=== PATIENT | female | born 1955 | race Caucasian/White ===

== ENCOUNTER 2020-12-05 18:14 | Observation (INO) | payer MEDICAID, SELFPAY ==
--- NOTE | ~2020-12-05 | CT_ITS ---
EXAMINATION: CT HEAD WITHOUT CONTRAST CLINICAL INFORMATION: Altered mental status COMPARISON: None TECHNIQUE: Contiguous axial imaging was performed from the skull base to vertex without intravenous administration of contrast. This CT examination was performed using dose optimization techniques as appropriate, variously including the following: *Automated exposure control *Adjustment of mA and/or kV according to patient size (this includes techniques or standardized protocols for targeted exams where dose is matched to indication/reason for exam; i.e. extremities or head) *Use of iterative reconstruction technique DLP: 699 mGy-cm FINDINGS: There is no evidence of acute intracranial hemorrhage or territorial infarction. No abnormal mass effect or midline shift is seen. Wells to white matter differentiation is well preserved. No extra-axial fluid collections are identified. The ventricles are normal in size. There is no abnormal attenuation within the brain parenchyma. There appears to be mild nonspecific heterogeneity of the calvarial marrow cavity, nonspecific. No bony fracture. Mucosal thickening of the left maxillary sinus. Other visualized paranasal sinuses and mastoid air cells are well aerated. CT/CT head/brain wo con IMPRESSION: 1. No acute intracranial pathology. 2. Mild nonspecific heterogeneity of the calvarial marrow cavity. This is a nonspecific finding but may be seen with underlying metabolic disorders. Clinical correlation recommended. 3. Minimal sinus disease.
--- NOTE | ~2020-12-05 | XR_ITS ---
EXAMINATION: XR CHEST CLINICAL INFORMATION: Shortness of breath COMPARISON: None TECHNIQUE: Frontal view of the chest was obtained. FINDINGS: Cardiac silhouette is normal in size. The lungs are well aerated. There is no lobar consolidation. No pleural effusion or pneumothorax. No gross osseous abnormality. XR/XR chest 1V IMPRESSION: No acute pulmonary pathology.
[2020-12-05 19:56] VITALS: BP 145/92; PULSE 70; RESP 18; TEMP 36.6; O2SAT 98
[2020-12-05 20:17] LABS: MANUAL DIFF FLAG NO
[2020-12-05 20:26] LABS: Basophils Percent Auto 0.5 % (0-2); Eosinophils Absolute Auto 0.2 X10*3/uL (0.0-0.4); Eosinophils Percent Auto 1.9 % (0-4); Hematocrit 37.9 % (37-47); Hemoglobin 12.2 g/dl (12.0-16.0); Imm Gran Abs Auto 0.02 X10*3/uL (0.00-0.03); Imm Gran Pct Auto 0.2 % (0.0-0.4); Lymphocytes Absolute Auto 2.4 X10*3/uL (1.2-4.9); Lymphocytes Percent Auto 27.3 % (20-40); Mean Corpuscular HGB Conc 32.2 g/dl (31.0-35.0); Mean Corpuscular Hemoglobin 27.4 pg (27.0-33.0); Mean Platelet Volume 9.7 fL (9.4-12.3); Monocytes Absolute Auto 0.9 X10*3/uL (0.1-1.2); Monocytes Percent Auto 10.2 % (2-11); Neutrophils Absolute Auto 5.3 X10*3/uL (2.0-8.3); Neutrophils Percent Auto 59.9 % (45-73); Platelet Count 266 X10*3/uL (160-400); Red Blood Count 4.46 X10*6/uL (4.20-5.50); Red Cell Distribution Width 15.1 % (11.0-16.0); White Blood Count 8.9 X10*3/uL (4.8-10.8)
[2020-12-05 20:36] LABS: Prothrombin Time 12.2 SEC (10.8-13.0)
[2020-12-05 20:45] LABS: Anion Gap 13 (12-20); Blood Urea Nitrogen 6 mg/dL (9-16); Calcium 9.6 mg/dL (8.4-10.2); Carbon Dioxide 28 mmol/L (22-29); Chloride 95 mmol/L (96-108); Creatinine Clr Calc Pharmacy 4.4; Estimated Glomerular Filt Rate > 60; Glucose Random 87 mg/dL (60-115); Potassium 3.2 mmol/L (3.3-5.1); Sodium 133 mmol/L (135-145)
[2020-12-05 21:28] VITALS: BP 133/69; PULSE 74; RESP 19; TEMP 36.5; O2SAT 90
--- NOTE | 2020-12-05 22:30 | ECG_ITS ---
Test Reason : DIZZINESS Blood Pressure : / mmHG Vent. Rate : 072 BPM Atrial Rate : 072 BPM P-R Int : 124 ms QRS Dur : 086 ms QT Int : 396 ms P-R-T Axes : 039 076 050 degrees QTc Int : 433 ms Normal sinus rhythm Normal ECG No previous ECGs available Referred By: Miriam Flores Electronically Signed By:HERNAN MOCTEZUMA MD
--- NOTE | 2020-12-05 22:37 | ED_ITS ---
HPI - Dizziness General Chief Complaint: Dizziness Stated Complaint: dizziness Time Seen by Provider: 12/05/20 22:28 History of Present Illness HPI Narrative: Patient is a 65-year-old female with a long history of smoking. Patient complaining of change in gait over last 10 days becoming very unsteady. No fever no chills no coughing or congestion. No focal weakness. Positive coughing positive generalized malaise. Patient claims that she has been losing some weight as well. She had both for coronavirus vaccines over 2 weeks ago. Patient denies any diaphoresis. She is from home. She has no chest pain. No bloody stool. Related Data Home Medications Medication Instructions Recorded Confirmed No Known Home Meds 12/06/20 12/06/20 Allergies Allergy/AdvReac Type Severity Reaction Status Date / Time No Known Allergies Allergy Verified 12/05/20 22:28 Review of Systems Review of Systems: Constitutional: No Weight loss, No Fever, No Chills, No Night Sweats, No Fatigue, No Malaise ENT/Mouth: No Hearing loss, No Ear Pain, No Nasal Congestion, No Sinus Pain, No Hoarseness, No sore throat, No Rhinorrhea, No Swallowing Difficulty Eyes: No Eye Pain, No Swelling, No Redness, No Foreign Body, No Discharge, No Vision Changes Cardiovascular: No Chest Pain, No SOB, No Dyspnea on Exertion, No Orthopnea, No Edema, No Palpitations Respiratory: No Cough, No Sputum, No Wheezing, No Smoke Exposure, No Dyspnea Gastrointestinal: No Nausea, No Vomiting, No Diarrhea, No Constipation, No abdominal Pain, No Hematochezia, No Melena Genitourinary: no irregular bleeding, No Dysuria, No Urinary Frequency, No Hematuria, No Urinary Incontinence, No Urgency, No Flank Pain, No Urinary Flow Changes, No Hesitancy Musculoskeletal: No joint pain, No Myalgias, No Joint Swelling Skin: No Skin Lesions, No rash Neuro: No Weakness, No Numbness, No Paresthesias, No Loss of Consciousness, positive Dizziness, No Headache Psych: No Anxiety/Panic, No Depression, No SI/HI/AH/VH, No Social Issues, Heme/Lymph: No Bruising, No Bleeding,No Lymphadenopathy Endocrine: No Polyuria, No Polydipsia, No Temperature Intolerance PMFSH Past Medical History Attestation statement: The following information was validated with the patient. Medical History Hypertension Osteoporosis Psoriasis Psoriatic arthritis Social History Social History Advance Directives: No Advance Directives Information Provided: Yes Patient : No Physical Exam Vital Signs: Vital Signs: Last Vital Signs Temp 98.1 F 12/05/20 23:02 Pulse 78 12/05/20 23:02 Resp 21 H 12/05/20 23:02 BP 103/57 L 12/05/20 23:02 Pulse Ox 94 12/05/20 23:02 Body Mass Index 1.4 Appearance: Alert. Oriented X3. No acute distress. Eyes: Pupils equal, round and reactive to light. ENT: Pharynx normal. Neck: Normal inspection. Neck supple. No lymph nodes noted. No crepitus CVS: Normal heart rate and rhythm. Pulses normal. Normal S1 and S2 Respiratory: No respiratory distress. Breath sounds normal. No Wheezing. No rales Abdomen: Soft and nontender. No rigidity. No distention. good BS x4 Skin: Skin warm and dry. Positive psoriasis noted bilateral lower extremity Extremities: No lower extremity edema. Neurovascular intact to all extremities. No Lacerations. No Rash Neuro: Oriented X 3. No motor deficit. No sensory deficit. Moving all extermities. No slurred speech MDM - Dizziness MDM Narrative Medical decision making narrative: Patient's CT scan of the head was grossly negative for any acute evidence of bleeding. No mass. Patient's EKG showed a sinus pattern no arrhythmia noted. Patient's electrolytes unremarkable. Chest x-ray showed no focal infiltrate. However patient continued to have change in gait. Unable to ambulate well. Question posterior circulation issues. Question lesion in the cerebellum. Will admit patient for further evaluation. Patient's case discussed with her. Currently in stable condition. Lab Data Attestation: I reviewed the patient's lab results. Result diagrams: 12/05/20 20:12 12/05/20 20:12 Labs: Lab Results 12/05/20 12/05/20 12/05/20 Range/Units 20:12 20:12 20:12 WBC 8.9 (4.8-10.8) X10*3/uL RBC 4.46 (4.20-5.50) X10*6/uL Hgb 12.2 (12.0-16.0) g/dl Hct 37.9 (37-47) % MCV 85.0 (80-98) fL MCH 27.4 (27.0-33.0) pg MCHC 32.2 (31.0-35.0) g/dl RDW 15.1 (11.0-16.0) % Plt Count 266 (160-400) X10*3/uL MPV 9.7 (9.4-12.3) fL Immature Gran % (Auto) 0.2 (0.0-0.4) % Neut % (Auto) 59.9 (45-73) % Lymph % (Auto) 27.3 (20-40) % [place] % (Auto) 10.2 (2-11) % Eos % (Auto) 1.9 (0-4) % Baso % (Auto) 0.5 (0-2) % Lymph # (Auto) 2.4 (1.2-4.9) X10*3/uL [place] # (Auto) 0.9 (0.1-1.2) X10*3/uL Eos # (Auto) 0.2 (0.0-0.4) X10*3/uL Baso # (Auto) 0.0 (0.0-0.2) X10*3/uL Abs Immat Gran (auto) 0.02 (0.00-0.03) X10*3/uL Absolute Neuts (auto) 5.3 (2.0-8.3) X10*3/uL Absolute Nucleated RBC 0.000 (0.0-0.012) X10*3/uL Nucleated RBC % (auto) 0.0 (0.0-0.2) /100WBC PT 12.2 (10.8-13.0) SEC INR 1.0 (0.9-1.1) Sodium 133 L (135-145) mmol/L Potassium 3.2 L (3.3-5.1) mmol/L Chloride 95 L (96-108) mmol/L Carbon Dioxide 28 (22-29) mmol/L Anion Gap 13 (12-20) BUN 6 L (9-16) mg/dL Creatinine 0.74 (0.5-1.4) mg/dL Estim Creat Clear Calc 4.4 Estimated GFR > 60 Random Glucose 87 (60-115) mg/dL Calcium 9.6 (8.4-10.2) mg/dL Magnesium 1.9 (1.6-2.6) mg/dL Troponin I High Sens (<3.5-17.0) ng/L COVID-19 (ISAC) (Negative) COVID-19 Clin Com 12/05/20 12/06/20 12/06/20 Range/Units 20:12 01:21 01:21 WBC (4.8-10.8) X10*3/uL RBC (4.20-5.50) X10*6/uL Hgb (12.0-16.0) g/dl Hct (37-47) % MCV (80-98) fL MCH (27.0-33.0) pg MCHC (31.0-35.0) g/dl RDW (11.0-16.0) % Plt Count (160-400) X10*3/uL MPV (9.4-12.3) fL Immature Gran % (Auto) (0.0-0.4) % Neut % (Auto) (45-73) % Lymph % (Auto) (20-40) % [place] % (Auto) (2-11) % Eos % (Auto) (0-4) % Baso % (Auto) (0-2) % Lymph # (Auto) (1.2-4.9) X10*3/uL [place] # (Auto) (0.1-1.2) X10*3/uL Eos # (Auto) (0.0-0.4) X10*3/uL Baso # (Auto) (0.0-0.2) X10*3/uL Abs Immat Gran (auto) (0.00-0.03) X10*3/uL Absolute Neuts (auto) (2.0-8.3) X10*3/uL Absolute Nucleated RBC (0.0-0.012) X10*3/uL Nucleated RBC % (auto) (0.0-0.2) /100WBC PT (10.8-13.0) SEC INR (0.9-1.1) Sodium (135-145) mmol/L Potassium (3.3-5.1) mmol/L Chloride (96-108) mmol/L Carbon Dioxide (22-29) mmol/L Anion Gap (12-20) BUN (9-16) mg/dL Creatinine (0.5-1.4) mg/dL Estim Creat Clear Calc Estimated GFR Random Glucose (60-115) mg/dL Calcium (8.4-10.2) mg/dL Magnesium (1.6-2.6) mg/dL Troponin I High Sens 5.6 4.5 (<3.5-17.0) ng/L COVID-19 (ISAC) Negative (Negative) COVID-19 Clin Com See Note ECG Data Attestation: I personally reviewed and interpreted this ECG as follows: Interpretation: Sinus heart rate is 70 W[place] QRS QT within normal limits there is no acute ST segment elevation noted. Discharge Plan Discharge Prescriptions: No Action No Known Home Meds RF: 0
[2020-12-05 23:02] VITALS: BP 103/57; PULSE 78; RESP 21; TEMP 36.7; O2SAT 94
--- NOTE | 2020-12-06 00:54 | P.HPHOSP_ITS ---
History of Present Illness Date of Service: 12/06/20 Chief Complaint: Unsteady gait 65-year-old female with a past medical history of tobacco dependence, hypertension, osteoporosis, psoriasis presented to the hospital with a chief complaint of unsteady gait/dizziness. Patient mentions that over the past few days she has been having unsteady gait which has been gradually worsening; denies any fall or head strike. Denies any focal weakness. Denies any numbness tingling. Denies chest pain palpitations lightheadedness dizziness.reports chronic cough- attributes to smoking. Review of all other systems is negative except mentioned above ER course: Per ER team patient was unsteady on gait; nonfocal on examination otherwise; CT head showed no acute findings. Admitted to the hospital for further management. [facility] Medical History Hypertension Osteoporosis Psoriasis Psoriatic arthritis Social History Patient Tobacco Use Status: Current everyday Tobacco user Tobacco use type: Cigarette Cigarette Packs Per Day: 1 Cigarettes Per Day: 20.0 Smoked in Last 30 Days: Yes Patient Interested in Nicotine Replacement: No Patient Given Instructions on How to Stop Smoking: No Second Hand Smoke Exposure: No Advance Directives: No Advance Directives Information Provided: Yes Patient : No Meds Allergies Allergy/AdvReac Type Severity Reaction Status Date / Time No Known Allergies Allergy Verified 12/05/20 22:28 Active Medications: Current Medications Generic Name Dose Route Start Last Admin Trade Name Freq PRN Reason Stop Dose Admin Acetaminophen 650 mg 12/06/20 00:42 Acetaminophen 325 Mg Tablet PO Q6H PRN Pain, Mild (Pain Scale 1-3) Aspirin 81 mg 12/06/20 09:00 Aspirin Enteric Coated 81 Mg Tablet.Dr PO DAILY [facility] Sodium Chloride 1,000 mls @ 100 mls/hr 12/06/20 00:45 Ns IVCONT .Q10H [facility] Magnesium Hydroxide 30 ml 12/06/20 00:42 Milk Of Magnesia 30 Ml Oral.Susp PO DAILY PRN Constipation Nicotine 21 mg 12/06/20 09:00 Nicotine 21 Mg Patch.[id number] TRANSDERMA DAILY [facility] Sodium Chloride 3 ml 12/06/20 08:00 0.9 % Sodium Chloride Flush 3 Ml Syringe IVFLUSH QSHIFT [facility] Home Medications Medication Instructions Recorded Confirmed Last Taken Type No Known Home Meds 12/06/20 12/06/20 Unknown History Physical Exam Vital Signs and Narrative: Vital Signs: Last Vital Signs Temp 98.1 F 12/05/20 23:02 Pulse 78 12/05/20 23:02 Resp 21 H 12/05/20 23:02 BP 103/57 L 12/05/20 23:02 Pulse Ox 94 12/05/20 23:02 Body Mass Index 1.4 Gen: Appears be in no acute distress HEENT: NCAT, Moist mucosa. Pulmonary: Vesicular breath sounds, fair air entry CVS: Normal S1-S2 Abdomen: BS+, Soft, Nontender Extremities: Warm well perfused Neuro: Alert and awake. Grossly nonfocal; intact heel to carrasco and tyewms-hv-rebr test; Results Labs CBC and Chem 7: 12/06/20 04:40 12/06/20 04:40 Labs: Laboratory Results - last 24 hr 12/05/20 12/05/20 12/05/20 20:12 20:12 20:12 MCV 85.0 MCH 27.4 MCHC 32.2 RDW 15.1 Plt Count 266 MPV 9.7 Immature Gran % (Auto) 0.2 Neut % (Auto) 59.9 Lymph % (Auto) 27.3 Sac % (Auto) 10.2 Eos % (Auto) 1.9 Baso % (Auto) 0.5 Lymph # (Auto) 2.4 Sac # (Auto) 0.9 Eos # (Auto) 0.2 Baso # (Auto) 0.0 Abs Immat Gran (auto) 0.02 Absolute Neuts (auto) 5.3 Absolute Nucleated RBC 0.000 Nucleated RBC % (auto) 0.0 PT 12.2 INR 1.0 Anion Gap 13 Estim Creat Clear Calc 4.4 Estimated GFR > 60 Random Glucose 87 Calcium 9.6 Imaging Radiologist's Impressions: Impressions Chest X-Ray 12/05/20 22:29 IMPRESSION: No acute pulmonary pathology. Head CT 12/05/20 22:29 IMPRESSION: 1. No acute intracranial pathology. 2. Mild nonspecific heterogeneity of the calvarial marrow cavity. This is a nonspecific finding but may be seen with underlying metabolic disorders. Clinical correlation recommended. 3. Minimal sinus disease. Assessment and Plan (1) Unsteady gait: Status: Acute 65-year-old female with a past medical history of tobacco dependence, hypertension, psoriasis presented to the hospital with a chief complaint of unsteady gait which has been gradually worsening. Unsteady gait/Dizziness: Unclear etiology CT head showed no acute findings Will obtain MRI head and MRA head and neck. Neurology consult Fall precautions PT/OT Telemetry, cycle cardiac enzymes Will obtain TSH, hemoglobin A1c, lipid profile Echocardiogram with bubble study Will also obtain folate and B12 levels. Tobacco dependence: Counseled on smoking cessation. Nicotine patch offered. DVT prophylaxis: SCD boots Code status: Full code
[2020-12-06] MEDS: Potassium Chloride Packet 20 MEQ PACKET 40 MEQ PO (01:00)
[2020-12-06 01:34] LABS: Troponin-I High Sensitivity 5.6 ng/L (<3.5-17.0)
[2020-12-06 01:42] LABS: Magnesium 1.9 mg/dL (1.6-2.6)
[2020-12-06 01:55] LABS: COVID-19 Test Negative (Negative); IDNOW Serial# 9DD0AD1C
[2020-12-06] MEDS: 0.9 % Sodium Chloride 1,000 ML 100 ML IVCONT (02:00)
[2020-12-06 02:05] LABS: Troponin-I High Sensitivity 4.5 ng/L (<3.5-17.0)
[2020-12-06 02:44] VITALS: BP 123/64; PULSE 74; RESP 16
[2020-12-06] MEDS: Aspirin 325 MG TABLET PO (02:55)
[2020-12-06 05:00] LABS: MANUAL DIFF FLAG NO
[2020-12-06 05:10] LABS: Basophils Percent Auto 0.5 % (0-2); Eosinophils Absolute Auto 0.2 X10*3/uL (0.0-0.4); Eosinophils Percent Auto 2.7 % (0-4); Hematocrit 35.1 % (37-47); Hemoglobin 11.4 g/dl (12.0-16.0); Imm Gran Abs Auto 0.02 X10*3/uL (0.00-0.03); Imm Gran Pct Auto 0.3 % (0.0-0.4); Lymphocytes Absolute Auto 1.7 X10*3/uL (1.2-4.9); Lymphocytes Percent Auto 26.1 % (20-40); Mean Corpuscular HGB Conc 32.5 g/dl (31.0-35.0); Mean Corpuscular Hemoglobin 27.5 pg (27.0-33.0); Mean Corpuscular Volume 84.6 fL (80-98); Mean Platelet Volume 9.5 fL (9.4-12.3); Monocytes Absolute Auto 0.7 X10*3/uL (0.1-1.2); Monocytes Percent Auto 11.3 % (2-11); Neutrophils Absolute Auto 3.8 X10*3/uL (2.0-8.3); Neutrophils Percent Auto 59.1 % (45-73); Platelet Count 249 X10*3/uL (160-400); Red Blood Count 4.15 X10*6/uL (4.20-5.50); White Blood Count 6.4 X10*3/uL (4.8-10.8)
[2020-12-06 05:51] LABS: Anion Gap 12 (12-20); Blood Urea Nitrogen 5 mg/dL (9-16); Calcium 8.8 mg/dL (8.4-10.2); Carbon Dioxide 27 mmol/L (22-29); Chloride 100 mmol/L (96-108); Cholesterol 190 mg/dL; Creatinine Clr Calc Pharmacy 4.8; Estimated Glomerular Filt Rate > 60; Glucose Random 91 mg/dL (60-115); HDL Cholesterol 77 mg/dL; LDL Cholesterol Calculated 97 mg/dl; Potassium 3.2 mmol/L (3.3-5.1); Sodium 136 mmol/L (135-145); Triglycerides 81 mg/dL
--- NOTE | 2020-12-06 06:00 | PC.NURSE ---
UNABLE TO NURSE TO TAKE REPORT. WILL RETURN CALL.
[2020-12-06 06:02] VITALS: BP 118/60; PULSE 78; RESP 16
[2020-12-06 06:10] LABS: Thyroid Stimulating Hormone 1.35 uIU/mL (0.32-4.0)
--- NOTE | 2020-12-06 06:11 | PC.NURSE ---
REPORT GIVEN TO FLOOR.
[2020-12-06 06:45] VITALS: BP 125/72; PULSE 77; RESP 16; TEMP 36.1; O2SAT 99
[2020-12-06 06:53] LABS: Estimated Average Glucose 97 mg/dL
--- NOTE | 2020-12-06 07:30 | CA_ITS ---
Transthoracic Echocardiogram Patient (Last, First, Middle): Albertina Juarez, Gender: Female Date of : 1955 Age: 65 Procedure Date: 12/06/2020 Procedure Type: Transthoracic Echocardiogram Location: [facility] Height: 160.02 cm Weight: 62. kg BSA: 1.64 m2 Heart Rate: bpm BP: 118 / 60 mmHg Spindle Tester: LOWELL Pitts MD: Everett Esteves MD Bolter Helper: Sam Patel MD Symptoms: TIA Study Quality: Fair ECG Rhythm: Sinus Conclusions: - 1. Normal LV systolic function with impaired relaxation filling pattern and elevated filling pressures 2. Moderately dilated left atrium 3. Fibrocalcific aortic valve changes noted and severe mitral annular calcification noted with normal cardiac valvular Doppler 4. Normal RV systolic pressure 5. No pericardial effusion Findings Left Ventricle Normal left ventricular size, thickness, and systolic function. The visually estimated ejection fraction is between 60-65%. Spectral Doppler is indicative of an impaired relaxation filling pattern. Elevated filling pressures. E/E prime ratio is >15, consistent with elevated filling pressures. Right Ventricle Normal right ventricular cavity size and systolic function. Atria The left atrium is moderately dilated. There is no evidence of interatrial shunt. The right atrium is mildly dilated. Aortic Valve There is mild calcification of the aortic valve. There is moderate thickening of the aortic valve. There is no aortic valve stenosis. There is no aortic valve regurgitation. Mitral Valve There is moderate anterior and severe posterior mitral leaflet thickening. There is severe mitral annular calcification. There is trace mitral valve regurgitation. There is no mitral valve stenosis. Pulmonic Valve The pulmonic valve was not well visualized. There is trace pulmonic valve regurgitation. Tricuspid Valve Normal tricuspid valve structure. There is mild tricuspid valve regurgitation. The right ventricular systolic pressure is normal. The right ventricular systolic pressure is 34 mmHg. Normal right atrial pressure. There is no evidence of pulmonary hypertension. Great Vessels All visible segments of the aorta are normal in size. The pulmonary artery was not well visualized. Venous The inferior vena cava is normal in size and collapses greater than 50% with inspiration. Pericardium/Pleural There is no evidence of pericardial effusion. Prior Study Comparison No prior study available for comparison. Measurements 2D Linear Measurements IVSd: 0.96 0.6-0.9/0.6-1.0 cm LVIDd: 4.46 3.9-5.3/4.2-5.9 cm LVIDd Index: 2.72 2.4-3.2/2.2-3.1 cm/m2 LVIDs: 3.20 2.0-3.6 cm LVPWd: 0.85 0.7-1.1 cm Ao Root: 2.70 2.1-3.5 cm LA Diam: 4.20 2.7-3.8/3.0-4.0 cm LAIDs Index: 2.56 1.5-2.3 cm/m2 LV Mass: 163.35 67-162/88-224 g LV Mass Index: 99.60 43-95/49-115 g/m2 LVOT Diam: 2.00 3.0+(-)1.3 cm 2D Systolic Function EF 4C: 65.00 >55% EF 2C: 54.50 >55% EF BiP: 60.00 >55% Mitral Valve MV Pk E: 1.18 MV PK A: 1.16 MV Decel Time: 328.00 E/A: 1.00 E'Lateral: 7.40 E'Medial: 7.18 E/E' Med: 16.40 E/E' Lat: 15.90 PHT: 96.00 MVA PHT: 2.29 Decel [place]: 3.58 Aortic Valve AoV Pk Zeyad: 2.04 AoV Mn Zeyad: 1.19 AoV VTI: 0.38 AoV Pk Grad: 17.00 Aov Mn Grad: 7.00 KOJO Cont.VTI: 2.61 LVOT LVOT Pk Zeyad: 1.63 LVOT Mn Zeyad: 1.04 LVOT VTI: 0.31 LVOT Pk Grad: 11.00 LVOT Mn Grad: 5.00 LVOT Diam: 2.00 LVOT Area: 3.14 Diastolic Function MV Pk E: 1.18 MV Pk A: 1.16 E/A: 1.00 E'Medial: 7.18 E/E' Med: 16.40 E' Laterial: 7.40 E/E' Lat: 15.90 Tricuspid Valve TR Pk Zeyad: 2.80 TR Pk Grad: 31.00 RA Press: 3.00 RVSP: 34.00 Great Vessels Aorta Ao Root-2D: 2.70 2.0-3.7 cm Ao Asc: 3.20 2.1-3.4 cm Ao Arch: 2.70 Updated in Other Vendor System with Status of Final Sam Patel MD electronically signed on 12/06/2020 2:16:11 PM with status of Final
[2020-12-06 07:47] VITALS: BP 114/58; PULSE 74; RESP 17; TEMP 36.4; O2SAT 95
[2020-12-06 08:08] VITALS: BMI 24.3
[2020-12-06 08:26] VITALS: BP 114/58; PULSE 74; O2SAT 95
[2020-12-06 09:21] LABS: Folate 15.3 ng/mL (> or = 4.0); Vitamin B12 194 pg/mL (200-900)
[2020-12-06] MEDS: Aspirin Enteric Coated 81 MG TABLET.DR PO (09:25)
[2020-12-06 11:38] VITALS: BP 114/68; PULSE 78; RESP 16; TEMP 36.5; O2SAT 97
--- NOTE | 2020-12-06 13:43 | MHC.CM.PN ---
NURSE MOTOR REBUILDER NICHOLASR ELECTRONIC MEDICAL RECORD REVIEWED I WENT TO SEE PATIENT 2X TODAY AND SHE WAS SLEEPING. I WENT BACK TO SEE HER AND THE BEDSIDE NURSE INFORMED ME THAT SHE MET WITH NURSE AND HOSPITLAIST AND SIGHNED OUT AGAINST MEDICAL ADVICE AMA PATIENT LEFT AMA WITH OPUT BEING SEEN BY CASE MANAGEMENT
--- NOTE | 2020-12-06 13:55 | MHC.SL.SWA ---
Speech Pathologist Impression: Within Functional Limits Dysphasia Diet Status: No Change Liquid Consistency and Strategies for Safe Swallow: Liquid Intake Recommendation: Thin Liquid Intake Strategies: Unrestricted Solid Food Consistency: Dietary Recommendations: Regular Oral Medication Intake: Whole with Liquid Compensatory Strategies and Precautions to be Taken for Safe Swallow: Sitting Upright (90 deg) Small Bites and Sips Alternate Liquids/Solids Rate of Ingestion Change Supervision While Eating and Drinking for Safe Swallow: None Needed Recommendation for Speech: NA:Typical Evaluation Household Assistant Clinican/Clinical Fellow: No Supervisory Statement: I have reviewed and agree with the student/clinical fellow's documentation: N/A Speech Language Pathologist: Batsheva Barrios M.A., CCC-STRUCTURES TECHNICIAN
--- NOTE | 2020-12-06 16:42 | P.EN_ITS ---
Event Note Date of Service: 12/06/20 Event Note: Seen and examined this morning. Admission for unsteady gait, dizz iness. Patient was awake, alert and oriented x3. Denied any dizziness this am. MRI and neurology consult pending. Patient went down for MRI but declined procedure citing claustrophobia- declined anti anxiety medication Called by nurse that patient wanted to leave against medical advice, attempted to discuss with patient, but she left before I was able to
== END 2020-12-06 13:25 | disposition left against medical advice (07) ==
LOC: HO.ED 22:12 → HO.EDOVER 12-06 02:43 → HO.S3 12-06 03:31
PROVIDERS: Admitting Provider Hospitalist; Emergency Provider Emergency Medicine Emergency Medical Services; PCP Internal Medicine; Visit Provider Internal Medicine
DX: R26.81 Unsteadiness on feet (principal); R41.82 Altered mental status, unspecified; R42 Dizziness and giddiness; R05 Cough; R06.02 Shortness of breath; R53.81 Other malaise; I10 Essential (primary) hypertension; M81.0 Age-related osteoporosis without current pathological fracture; L40.50 Arthropathic psoriasis, unspecified; F17.210 Nicotine dependence, cigarettes, uncomplicated; Z71.6 Tobacco abuse counseling; Z20.822 Contact with and (suspected) exposure to COVID-19; Z53.29 Procedure and treatment not carried out because of patient's decision for other reasons; Z79.82 Long term (current) use of aspirin; Z79.899 Other long term (current) drug therapy
CPT/HCPCS: 36415; 70450; 71045; 80048; 80061; 82607; 82746; 83036; 83735; 84443; 84484; 85025; 85610; 87635; 92523; 92610; 93005; 93306; 97162; 97166; 99218; 99285

== ENCOUNTER 2021-05-16 03:11 | Emergency (ER) | payer MEDICARE, MEDICAID, SELFPAY ==
[2021-05-16 03:17] VITALS: BP 150/100; BP 175/98; PULSE 100; PULSE 92; RESP 14; TEMP 36.8; O2SAT 99; BMI 25.6
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
[2021-05-16 03:57] LABS: MANUAL DIFF FLAG NO
[2021-05-16 03:59] LABS: Basophils Percent Auto 0.2 % (0-2); Hematocrit 39.8 % (37.0-47.0); Hemoglobin 13.9 g/dl (12.0-16.0); Imm Gran Abs Auto 0.02 X10*3/uL (0.00-0.03); Imm Gran Pct Auto 0.2 % (0.0-0.4); Lymphocytes Absolute Auto 1.7 X10*3/uL (1.2-4.9); Lymphocytes Percent Auto 14.7 % (20-40); Mean Corpuscular HGB Conc 34.9 g/dl (31.0-35.0); Mean Corpuscular Hemoglobin 28.4 pg (27.0-33.0); Mean Corpuscular Volume 81.2 fL (80.0-98.0); Mean Platelet Volume 9.3 fL (9.4-12.3); Monocytes Absolute Auto 0.7 X10*3/uL (0.1-1.2); Monocytes Percent Auto 5.8 % (2-11); Neutrophils Absolute Auto 9.1 x10*3/uL (2.0-8.3); Neutrophils Percent Auto 79.1 % (45-73); Platelet Count 215 X10*3/uL (160-400); Red Cell Distribution Width 15.3 % (11.0-16.0); White Blood Count 11.5 X10*3/uL (4.8-10.8)
[2021-05-16] MEDS: 0.9 % Sodium Chloride 1,000 ML 999 ML IVCONT (04:00)
[2021-05-16] MEDS: ondansetron HCL 4 MG/2 ML VIAL IVPUSH (04:00)
[2021-05-16 04:16] LABS: Ethanol < 10 mg/dL
[2021-05-16 04:25] LABS: Alanine Aminotransferase 12 U/L (0-31); Albumin Level 4.6 g/dL (3.5-5.0); Alkaline Phosphatase 91 U/L (39-117); Anion Gap 21 (12-20); Aspartate Amino Transferase 22 U/L (5-31); Bilirubin Direct 0.6 mg/dL (0.0-0.5); Bilirubin Total 1.7 mg/dL (0.0-1.0); Blood Urea Nitrogen 9 mg/dL (9-16); Calcium 9.3 mg/dL (8.4-10.2); Carbon Dioxide 26 mmol/L (22-29); Chloride 88 mmol/L (96-108); Creatinine Clr Calc Pharmacy 64.6; Estimated Glomerular Filt Rate > 60; Glucose Random 136 mg/dL (60-115); Lipase 24 U/L (8-78); Magnesium 1.9 mg/dL (1.6-2.6); Potassium 3.5 mmol/L (3.3-5.1); Sodium 131 mmol/L (135-145); Total Protein 7.8 g/dL (6.5-8.0)
[2021-05-16 05:49] LABS: Appearance Urine CLEAR; Color Urine YELLOW; Glucose Urine UA NEG (NEG); Leukocyte Esterase Urine NEG (NEG); Nitrite Urine NEG (NEG); Specific Gravity - Urine <= 1.005 (1.005-1.025); UACC Culture Trigger NO; Urine Blood TRACE (NEG); Urine Ketones 40 MG/DL (NEG); Urine Protein 1+ MG/DL (NEG-TRACE)
[2021-05-16 05:58] LABS: Mucus Urine TRACE /LPF; Renal Epithelial Cells Urine TRACE /LPF; Squamous Epithelial Cell Urine TRACE /LPF
[2021-05-16 05:59] LABS: Bacteria Urine TRACE /LPF; RBC Urine 0-2 /HPF (0); WBC Urine 0 /HPF (0-4)
[2021-05-16 06:01] LABS: Amphetamine Screen Urine Not Detected (Not Detect); Barbiturates, Urine Not Detected (Not Detect); Benzodiazepines Screen Urine Not Detected (Not Detect); Cannabinoid Screen Urine Not Detected (Not Detect); Cocaine Screen Urine Not Detected (Not Detect); Fentanyl, urine Not Detected (Not Detect); Opiate Screen Urine Not Detected (Not Detect); Phencyclidine Screen Urine Not Detected (Not Detect)
--- NOTE | 2021-05-16 07:25 | PC.NURSE ---
pt appears to be sleeping att, rr even/unlabored. awaiting bhn eval. [facility]ctm for dc needs.
--- NOTE | 2021-05-16 07:46 | PC.NURSE ---
bhn crisis at bedside to eval pt.
--- NOTE | 2021-05-16 10:23 | PC.NURSE ---
per bhn, pt sts not feeling the need to go inpt at this time, but would like to have psych eval. provider aware, psych consult ordered.
--- NOTE | 2021-05-16 12:52 | MHC.CARE ---
CARE Team me with Pt to provide support post [facility] evaluation. Pt reports wanting to be started on psychiatric medications. CARE Team discussed limitations of ED setting and starting medication. CARE Team provided Pt for local psychiatric agency - [facility] and encouraged Pt to follow up with PCP regarding medication management.
== END 2021-05-16 15:00 | disposition home or self-care (01) ==
PROVIDERS: Emergency Provider Emergency Medicine
DX: F41.9 Anxiety disorder, unspecified (principal); F32.A Depression, unspecified; R11.2 Nausea with vomiting, unspecified; F17.200 Nicotine dependence, unspecified, uncomplicated
CPT/HCPCS: 36415; 80048; 80076; 80307; 81001; 82077; 83690; 83735; 85025; 96361; 96374; 99285; J2405